=== PATIENT | male | born 1930 | race Caucasian/White ===

== ENCOUNTER 2017-11-08 12:15 | Emergency (ER) | payer BC ==
[2017-11-08] MEDS: SOD CHLORIDE 0.9% 500 ML IV (12:59)
[2017-11-08 13:00] LABS: ADD MAN DIFF? NO
[2017-11-08 13:03] LABS: WHITE BLOOD COUNT 7.1 10^3/ul (4.8-10.8)
[2017-11-08 13:03] LABS: ABNORMAL IP MESSAGE 1; EOSINOPHILS # 0.1 10^3/ul (0.0-0.5); EOSINOPHILS % 0.9 % (0.0-7.0); HEMATOCRIT 32.1 % (42.0-52.0); HEMOGLOBIN 10.7 g/dl (14.0-18.0); LYMPHOCYTES # 0.5 10^3/ul (0.8-2.9); LYMPHOCYTES % 6.5 % (15.0-51.0); MEAN CORPUSCULAR HEMOGLOBIN 30.5 pg (29.0-33.0); MEAN CORPUSCULAR HGB CONC 33.3 g/dl (32.0-37.0); MEAN CORPUSCULAR VOLUME 91.5 fl (82.0-101.0); MEAN PLATELET VOLUME 10.4 fl (7.4-10.4); MONOCYTE # 0.5 10^3/ul (0.3-0.9); MONOCYTES % 7.4 % (0.0-11.0); NEUTROPHILS % 84.8 % (39.0-77.0); PLATELET COUNT 91 10^3/UL (140-415); POSITIVE DIFF @See below; RED BLOOD COUNT 3.51 10^6/ul (4.70-6.10)
[2017-11-08 13:26] LABS: ALANINE AMINOTRANSFERASE 56 IU/L (13-69); ALBUMIN 2.5 g/dl (3.3-4.9); ALKALINE PHOSPHATASE 48 IU/L (42-121); ANION GAP 8 (8-16); ASPARTATE AMINO TRANSFERASE 27 IU/L (15-46); BILIRUBIN,INDIRECT 0.2 mg/dl (0-1.1); BILIRUBIN,TOTAL 0.2 mg/dl (0.2-1.3); BLOOD UREA NITROGEN 52 mg/dl (7-20); CALCIUM 8.4 mg/dl (8.4-10.2); CARBON DIOXIDE 30 mmol/L (21-31); CHLORIDE 105 mmol/L (97-110); CREATININE 1.56 mg/dl (0.61-1.24); GLUCOSE 133 mg/dl (70-220); SODIUM 140 mmol/L (135-144)
[2017-11-08 13:36] LABS: POTASSIUM 2.9 mmol/L (3.5-5.1)
[2017-11-08] MEDS: POTASSIUM CHLORIDE 30 MEQ in SOD CHLORIDE 0.9% 985 ML IV (15:16)
[2017-11-08 17:14] LABS: B-TYPE NATRIURETIC PEPTIDE 2200 PG/ML (0-450)
[2017-11-08] MEDS ORDERED: LORAZEPAM 2 MG INJ IV (19:00)
[2017-11-08] MEDS ORDERED: hydrALAzine 20 MG INJ IV (19:00)
[2017-11-08] MEDS ORDERED: ONDANSETRON 4 MG INJ IV ×2 (19:00→19:30)
[2017-11-08] MEDS ORDERED: ACETAMINOPHEN 325 MG TAB PO ×2 (19:00→19:30)
[2017-11-08] MEDS ORDERED: NACL 0.9% 3 ML SYG IV (19:00)
[2017-11-08] MEDS ORDERED: MAGNESIUM HYDROXIDE 30ML CUP PO (19:00)
[2017-11-08] MEDS ORDERED: HYDROCODONE/APAP (5/325) TAB PO (19:00)
[2017-11-08] MEDS ORDERED: morphine 2 MG INJ IV (19:00)
[2017-11-08] MEDS ORDERED: DOCUSATE SODIUM 100 MG CAP PO (19:00)
[2017-11-08] MEDS ORDERED: NITROGLYCERIN (SL) 0.4 MG TAB SL (19:00)
[2017-11-08] MEDS ORDERED: NA PHOSPHATE/BIPHOS 133 ML ENEMA PR (19:00)
[2017-11-08] MEDS ORDERED: ALBUTEROL/IPRATROPIUM (NEB) 3 ML AMP HHN (19:00)
[2017-11-08 20:11] LABS: FREE T4 (FREE THYROXINE) 0.86 ng/dl (0.85-1.93)
[2017-11-08] MEDS ORDERED: GLUCAGON 1 MG INJ IM (21:00)
[2017-11-08] MEDS ORDERED: DEXTROSE 50% 50 ML SYRINGE IV ×2 (21:00)
[2017-11-08] MEDS ORDERED: GLUCOSE GEL 15 GRAM TUBE PO ×2 (21:00)
[2017-11-08] MEDS ORDERED: INSULIN LISPRO 12 UNIT SQ (21:00)
[2017-11-08] MEDS ORDERED: GLUCOSE GEL 15 GRAM TUBE BUCCAL (21:00)
[2017-11-08] MEDS: HEPARIN 5,000 UNIT/0.5 ML VIAL SC (21:00)
[2017-11-08] MEDS: LEVOFLOXACIN 750MG/D5W (PMX) 150 ML IVPB (21:12)
[2017-11-08] MEDS: ALLOPURINOL 100 MG TAB PO (21:30)
[2017-11-08] MEDS: OSELTAMIVIR 30 MG CAP PO (21:30)
[2017-11-08] MEDS: LACTOBACILLUS RHAMNOSUS CAP PO (21:30)
[2017-11-08] MEDS: ATORVASTATIN 20 MG TAB PO (21:30)
[2017-11-08] MEDS: INSULIN GLARGINE [LANtus] 3 ML PEN SC (21:37)
[2017-11-09] MEDS: FUROSEMIDE 40 MG INJ IV (06:59)
[2017-11-09 07:10] LABS: ADD MAN DIFF? NO
[2017-11-09 07:16] LABS: WHITE BLOOD COUNT 5.4 10^3/ul (4.8-10.8)
[2017-11-09 07:16] LABS: ABNORMAL IP MESSAGE 1; BASOPHILS % 0.2 % (0.0-2.0); EOSINOPHILS # 0.1 10^3/ul (0.0-0.5); EOSINOPHILS % 1.3 % (0.0-7.0); HEMATOCRIT 32.2 % (42.0-52.0); HEMOGLOBIN 10.5 g/dl (14.0-18.0); LYMPHOCYTES # 0.6 10^3/ul (0.8-2.9); LYMPHOCYTES % 11.8 % (15.0-51.0); MEAN CORPUSCULAR HEMOGLOBIN 29.9 pg (29.0-33.0); MEAN CORPUSCULAR HGB CONC 32.6 g/dl (32.0-37.0); MEAN CORPUSCULAR VOLUME 91.7 fl (82.0-101.0); MEAN PLATELET VOLUME 11.3 fl (7.4-10.4); MONOCYTE # 0.4 10^3/ul (0.3-0.9); MONOCYTES % 8.1 % (0.0-11.0); NEUTROPHIL # 4.2 10^3/ul (1.6-7.5); NEUTROPHILS % 77.9 % (39.0-77.0); PLATELET COUNT 88 10^3/UL (140-415); POSITIVE DIFF @See below; RED BLOOD COUNT 3.51 10^6/ul (4.70-6.10); RED CELL DISTRIBUTION WIDTH 14.3 % (11.5-14.5)
[2017-11-09 07:26] LABS: HEMOGLOBIN A1C 9.1 % (0-5.9)
[2017-11-09 07:40] LABS: CHOLESTEROL 139 mg/dl (100-200)
[2017-11-09 07:40] LABS: HDL CHOLESTEROL 46 mg/dl (31-75); LDL CHOLESTEROL,CALCULATED 69 mg/dl; TRIGLYCERIDES 118 mg/dl (0-149)
[2017-11-09 07:41] LABS: ANION GAP 9 (8-16); BLOOD UREA NITROGEN 39 mg/dl (7-20); CALCIUM 8.5 mg/dl (8.4-10.2); CARBON DIOXIDE 31 mmol/L (21-31); CHLORIDE 106 mmol/L (97-110); CREATININE 1.35 mg/dl (0.61-1.24); MAGNESIUM 1.7 mg/dl (1.7-2.5); PHOSPHORUS 2.1 mg/dl (2.5-4.9); POTASSIUM 3.2 mmol/L (3.5-5.1); SODIUM 143 mmol/L (135-144)
[2017-11-09 08:00] LABS: GLUCOSE 38 mg/dl (70-220)
[2017-11-09] MEDS: DEXTROSE 50% 50 ML SYRINGE IV (08:04)
[2017-11-09 08:10] LABS: THYROID STIMULATING HORMONE 0.608 MIU/L (0.465-4.680)
[2017-11-09] MEDS: LACTOBACILLUS RHAMNOSUS CAP PO (08:42)
[2017-11-09] MEDS: FAMOTIDINE 20 MG TAB PO (08:42)
[2017-11-09] MEDS: ALLOPURINOL 100 MG TAB PO (08:42)
[2017-11-09] MEDS: FINASTERIDE 5 MG TAB PO (08:42)
[2017-11-09] MEDS: MAGNESIUM SULFATE 2 GM/50 ML 50 ML IVPB (08:43)
[2017-11-09] MEDS: ASPIRIN 81 MG TAB PO (08:43)
[2017-11-09] MEDS: POTASSIUM CHLORIDE 10 MEQ in DEXTROSE 5% 50 ML IVPB ×3 (09:03→11:24)
[2017-11-09] MEDS: HEPARIN 5,000 UNIT/0.5 ML VIAL SC (09:09)
[2017-11-09] MEDS: INSULIN GLARGINE [LANtus] 3 ML PEN SC (09:12)
[2017-11-09 09:52] LABS: TROPONIN-I 0.043 ng/ml (0.00-0.12)
[2017-11-09 09:52] LABS: AADO2 Arterial 31.4 mmHg (7.0-24.0); Allen Test ACCEPTAB; Arterial Base Excess 2.7 mmol/L (-3.0-3); Arterial Blood Gas Oxygen Sat 92.4 mmHG (95.0-100.0); Arterial COHb 0.3 % (0.0-3.0); Arterial Fraction of Oxyhgb 91.8 % (93.0-99.0); Arterial HCO3 27.8 mmol/L (22.0-26.0); Arterial MetHb 0.4 % (0.0-1.5); Arterial Total Hemglobin 11.2 g/dl (12.0-18.0); Arterial pCO2 45.3 mmhg (35-45); MODE ROOM AIR; Site Right Radial
[2017-11-09] MEDS: POTASSIUM PHOSPHATE 20 MEQ in SOD CHLORIDE 0.9% 250 ML IVPB (13:04)
[2017-11-09 13:22] LABS: TROPONIN-I 0.039 ng/ml (0.00-0.12)
[2017-11-09] MEDS: INSULIN ASPART [NOVOLOG] 3 ML PEN SC (14:32)
[2017-11-09 15:35] LABS: POTASSIUM 3.1 mmol/L (3.5-5.1)
== END 2017-11-09 18:06 | disposition home or self-care (01) ==
LOC: E/R 12:15
DX: E11.649 Type 2 diabetes mellitus with hypoglycemia without coma (principal); E87.6 Hypokalemia; R06.00 Dyspnea, unspecified; Z87.891 Personal history of nicotine dependence; Z79.4 Long term (current) use of insulin; Z79.82 Long term (current) use of aspirin
CPT/HCPCS: 36415; 36600; 71045; 76775; 80048; 80053; 80061; 82803; 82962; 83036; 83735; 83880; 84100; 84132; 84439; 84443; 84484; 85025; 93005; 93306; 93970; 94660; 96372; 96374; 96375; 99285-25